=== PATIENT | female | born 1940 | race Caucasian/White ===

== ENCOUNTER 2019-01-17 09:53 | Inpatient (IN) ==
[2019-01-17] MEDS ORDERED: NS 1,000 ML IV ONE ×2 (10:44→13:27)
[2019-01-17 11:34] LABS: BASO# 0.02 X1000 (0.0-0.2); BASO% 0.2 % (0.0-0.8); EOS# 0.04 X1000 (0.0-0.7); EOS% 0.3 % (0.0-10.0); HEMATOCRIT 35.4 % (37.0-47.0); HEMOGLOBIN 11.6 g/dL (12.0-16.0); IMM GRAN# 0.03 X1000 (0.0-0.04); IMM GRAN% 0.3 % (0.0-0.5); LYMPH# 0.81 X1000 (1.2-3.4); LYMPH% 7.1 % (20.5-51.1); MCH 31.7 PG (27-31); MCHC 32.8 g/dL (33-37); MCV 96.7 FL (81-99); MONO# 1.05 X1000 (0.11-0.59); MONO% 9.2 % (1.7-9.3); MPV 10.5 FL (7.4-10.4); NEUT# 9.48 X1000 (1.4-6.5); NEUT% 82.9 % (42.2-75.2); PLT 270 X1000 (130-400); RBC 3.66 XMIL (4.2-5.4); WBC 11.43 X1000 (4.8-10.8)
[2019-01-17 11:52] LABS: ALBUMIN 3.6 g/dL (3.5-5.0); CALCIUM 9.9 mg/dL (8.8-10.2); CREATININE 1.2 mg/dL (0.5-0.9); POTASSIUM 4.6 mmol/L (3.5-5.1); TOTAL BILIRUBIN 0.46 mg/dL (0.20-1.00); TOTAL PROTEIN 7.1 g/dL (6.3-8.3)
[2019-01-17 12:20] LABS: URINE SOURCE CLEAN CATCH
[2019-01-17 12:24] LABS: BILIRUBIN URINE NEGATIVE (NEGATIVE); BLOOD URINE TRACE (NEGATIVE); COLOR YELLOW; GLUCOSE URINE NEGATIVE (NEGATIVE); KETONE URINE TRACE mg/dL (NEGATIVE); LEUKOCYTES URINE SMALL (NEGATIVE); NITRITE URINE NEGATIVE (NEGATIVE); PH URINE 5.5; PROTEIN URINE 50 mg/dL (NEGATIVE); SP GRAVITY URINE 1.009; TURBIDITY URINE HAZY (CLEAR); UROBILINOGEN URINE NORMAL (NORMAL)
[2019-01-17 12:28] LABS: UR EPITHELIAL CELLS <10 /HPF (<10); URINE BACTERIA NEGATIVE /HPF; URINE RBC <10 /HPF (<10)
[2019-01-17 12:44] LABS: URINE CASTS NONE SEEN
--- NOTE | 2019-01-17 12:50 | EKG Report ---
Test Performed on : 01/17/2019 10:07:18 AM Test Reason : ED. NO EKG ORDER FOR MUSE Blood Pressure : / mmHG Vent. Rate : 098 BPM Atrial Rate : 098 BPM P-R Int : 164 ms QRS Dur : 070 ms QT Int : 336 ms P-R-T Axes : 078 002 063 degrees QTc Int : 428 ms Normal sinus rhythm. Low voltage QRS Cannot rule out Anterior infarct , age undetermined Abnormal ECG No previous ECGs available Unconfirmed Result
--- NOTE | 2019-01-17 12:59 | Diag Imaging Result Doc PS360 ---
CT ABDOMEN/PELVIS W/O CONTRAST - 01/17/2019 INDICATION: abdominal pain COMPARISON: None FINDINGS: There is significant linear atelectasis or infiltrate in the lower lobes bilaterally. Heart size is normal. There is a small pericardial effusion. There is fatty metaplasia at the apex of the left ventricle of the heart indicating an old myocardial infarction here. There are a couple of stones in the left kidney measuring up to 4 mm. There is a left renal cyst that appears benign. There are low-density adrenal nodules bilaterally. These are compatible with benign adrenal adenomas. No hydronephrosis or hydroureter. There is significant fatty edema surrounding the sigmoid colon, particularly at a prominent diverticulum. No drainable fluid collection or free air. Urinary bladder is collapsed with an irregular contour, nonspecific. Uterus and rectum are normal. There are moderate degenerative changes of the spine. No acute or suspicious bony lesion. IMPRESSION: 1. Acute sigmoid colon diverticulitis. Recommend treatment and a follow-up CT or colonoscopy when better. 2. Nonobstructing left renal stones. This exam was performed using automated exposure control, adjustment of mA or kV according to patient size, and/or use of iterative reconstruction technique Electronically signed by Billy Stone 01/17/2019 12:57 PM
[2019-01-17] MEDS ORDERED: FLAGYL PO ONE (13:24)
[2019-01-17] MEDS ORDERED: DECADRON IV ONE (13:25)
[2019-01-17] MEDS ORDERED: LEVAQUIN 500 MG/D5W 500 MG/100 ML IVPB IV SCH (13:30)
[2019-01-17] MEDS ORDERED: CARDIZEM IV ONE (13:37)
--- NOTE | 2019-01-17 15:57 | HISTORY AND PHYSICAL ---
HISTORY OF PRESENT ILLNESS: Ms. Rose states that her tummy, lower abdomen, just started hurting and burning on Tuesday. She did not feel good, general malaise. She had fever, got up to 101 and some chills. Just had not had a bowel movement since Tuesday; today is Tuesday. She has not eaten much or drank much, but just felt like her tummy was inflamed. She denies any weight loss or weight gain. REVIEW OF SYSTEMS: HEENT: No change in visual or hearing acuity. Respiratory: With no increased work of breathing or dyspnea. Cardiovascular: No chest pain or tachy palpitation. Gastrointestinal/Genitourinary: Just the burning in her lower abdomen and constipation. No bowel movement since Tuesday, which is which is going on 5 to 6 days now. Musculoskeletal/Neurologic: No focal complaints Endocrinologic/Hematologic: No significant history or complaints. Neck: Without any adenopathy. No recent trauma or falls. PHYSICAL EXAMINATION: VITAL SIGNS: Temperature 98.6 degrees, pulse 87, respirations 21, blood pressure 111/62. HEENT: Pupils are equal round. Conjunctiva pink. Sclerae clear. CVP less than 6 cm. LUNGS: Clear in all lung [place]. NECK: CVP less than 6 cm. No cervical or supraclavicular adenopathy. CARDIOVASCULAR: Regular rhythm and rate without murmur or S3. ABDOMEN: Soft. She has some mild tenderness in the left lower quadrant. Positive bowel sounds. No organomegaly appreciated. No hepatosplenomegaly or splenomegaly. EXTREMITIES: No pedal edema. No sign of rashes. LABORATORY DATA: White count 11,430, hematocrit is 35, platelet count 270,000. Sodium 134, potassium 4.6, chloride 97, BUN of 21, creatinine 1.2. AST is 12, ALT 11, alkaline phosphatase 73, albumin 3.6. Urinalysis unremarkable. CT of the abdomen and pelvis, acute sigmoid diverticulitis, and nonobstructing left renal stones were appreciated. ASSESSMENT AND PLAN: Diverticulitis with some mild leukocytosis and fever and tenderness. We are going to treat her with some IV antibiotics, Levaquin and Flagyl, and hydrate her with some fluids. She does not have really any other significant past medical history or medical problems, and this is her first episode of diverticulitis. I believe she had a colonoscopy in 2007, and she is scheduled to get another one this year, and she will get one with followup after this admission. cc: Negro Arzola MD
[2019-01-17] MEDS ORDERED: TYLENOL PO PRN (16:48)
[2019-01-17] MEDS ORDERED: ZOFRAN IV PRN (16:48)
[2019-01-17] MEDS: NS 1,000 ML IV SCH (17:28)
[2019-01-17] MEDS: FLAGYL 500 MG/NS 500 MG/100 ML IVPB IV SCH ×2 (18:29→22:31)
[2019-01-17] MEDS: XANAX PO SCH (22:31)
[2019-01-18] MEDS: FLAGYL 500 MG/NS 500 MG/100 ML IVPB IV SCH ×4 (04:28→23:41)
[2019-01-18] MEDS: NS 1,000 ML IV SCH ×3 (06:01→23:41)
[2019-01-18 07:32] LABS: BASO# 0.01 X1000 (0.0-0.2); BASO% 0.1 % (0.0-0.8); HEMATOCRIT 32.4 % (37.0-47.0); HEMOGLOBIN 10.4 g/dL (12.0-16.0); IMM GRAN# 0.04 X1000 (0.0-0.04); IMM GRAN% 0.4 % (0.0-0.5); LYMPH# 0.72 X1000 (1.2-3.4); LYMPH% 6.4 % (20.5-51.1); MCH 31.2 PG (27-31); MCHC 32.1 g/dL (33-37); MCV 97.3 FL (81-99); MONO# 0.62 X1000 (0.11-0.59); MONO% 5.5 % (1.7-9.3); MPV 10.6 FL (7.4-10.4); NEUT# 9.79 X1000 (1.4-6.5); NEUT% 87.6 % (42.2-75.2); PLT 248 X1000 (130-400); RBC 3.33 XMIL (4.2-5.4); RDW 11.8 % (11.5-14.5); WBC 11.18 X1000 (4.8-10.8)
[2019-01-18 08:01] LABS: AGAP 11; ALB/GLOB RATIO 1.2; ALBUMIN 3.2 g/dL (3.5-5.0); ALKALINE PHOSPHATASE 69 U/L (32-104); BUN 15 mg/dL (8-22); CALCIUM 9.1 mg/dL (8.8-10.2); CHLORIDE 110 mmol/L (98-107); COSMO 287; CREATININE 0.7 mg/dL (0.5-0.9); ESTIMATED GFR > 60; GLUCOSE 124 mg/dL (70-104); GOT 10 U/L (10-30); GPT 9 U/L (10-36); SODIUM 143 mmol/L (136-145); TCO2 22 mmol/L (25-35); TOTAL BILIRUBIN 0.18 mg/dL (0.20-1.00); TOTAL PROTEIN 5.8 g/dL (6.3-8.3)
[2019-01-18] MEDS: LEVAQUIN 250 MG/D5W 250 MG/50 ML IVPB IV SCH (16:18)
--- NOTE | 2019-01-18 17:42 | PROGRESS NOTE ---
DATE: 01/18/2019 SUBJECTIVE: Ms. Rose is feeling a little better. She just got a bath. Her tummy feels better, less nausea. She is tolerating the full liquids well. OBJECTIVE: Vital signs: Temp 97.7 degrees, pulse 90, respirations 20, blood pressure 134/54. HEENT: Pupils are equal and round. Lungs: Clear in all lung [place]. Cardiovascular: Regular rhythm and rate. Abdomen: She has some tenderness in the lower abdomen, but it is much less than yesterday. ASSESSMENT AND PLAN: 1. Diverticulitis. Seems to be improved. Continue Levaquin and Flagyl IV. We are on full liquids. Hopefully another 24 hours of IV antibiotics and maybe she can go home with p.o. antibiotics. Her last colonoscopy was in 2007. She is scheduled to get another colonoscopy this year and will plan that as an outpatient. 2. Review of her orders. I do not see any change. cc: Negro Arzola MD
[2019-01-18] MEDS: XANAX PO SCH (20:36)
[2019-01-19] MEDS: NS 1,000 ML IV SCH ×2 (05:40→15:10)
[2019-01-19] MEDS: FLAGYL 500 MG/NS 500 MG/100 ML IVPB IV SCH ×4 (06:32→22:20)
--- NOTE | 2019-01-19 11:07 | PROVIDER DOCUMENTATION ---
This chart was entered by Nell Butts Scribe, acting as scribe for Stacia Kuhn MD. HPI-Abdominal Pain/GI Problem - General Chief Complaint: Abdominal Pain Stated Complaint: BODY PAIN/FEVER/NO APPETITE Time Seen by Provider: 01/17/19 10:31 Source: patient, family Allergies/Adverse Reactions: Patient Allergies Allergy/AdvReac Type Severity Reaction Status Date / Time Penicillins AdvReac VOMITING Verified 01/17/19 10:51 - History of Present Illness-ABD Nature of Presenting Problems: 78 yof presents with cc of waves of intermittent cramping abdominal pain since tuesday. Reports last BM was on Tuesday morning. reports took enema with no relief. Denies urinary symptoms. Pt also reports that her abd pain has eased up but she still is having generalized body pain. Reports fell out of bed yesterday and has left knee pain. Denies rectal pain, GI bleed. Abdominal Pain Onset Location: reports: generalized abdomen Quality of Pain: reports: aching Severity in ED: reports: mild Onset/Duration: reports: 5 days ago Timing: reports: still present, intermittent Dark Stools Present?: reports: none noticed Rectal Bleeding: reports: none Rectal Pain: reports: none Review of Systems - Adult - REVIEW OF SYSTEMS - ADULT Constitutional: denies: chills, fever, fatique Eyes: reports: no symptoms reported Ears, Nose, Mouth & Throat: denies: ear pain, sinus problem, throat pain Cardiovascular: reports: no symptoms reported Respiratory: reports: no symptoms reported Gastrointestinal: reports: abdominal pain, constipation, nausea. denies: hematemesis, diarrhea, difficulty swallowing, frequent heartburn, rectal bleeding, vomiting Genitourinary: denies: dysuria, discharge, frequency, frequent UTI's, hematuria, hesitency, incontinence Musculoskeletal: denies: bone pain, back pain, joint pain, neck pain Integumentary: reports: no symptoms reported Neurological: reports: no symptoms reported Psychiatric: reports: no symptoms reported Endocrine: reports: no symptoms reported Hematologic/Lymphatic: reports: no symptoms reported Allergic/Immunologic: reports: no symptoms reported All Other Systems: Reviewed and Negative Past History - Adult - PAST MEDICAL HISTORY-ADULT Review of Records: reports: Nursing Assessment Review, Medications Reviewed Major Childhood Illnesses: reports: denies history Cardiovascular: reports: denies history Respiratory: reports: denies history Gastrointestinal: reports: denies history Obstetrical/Gynecological: reports: denies history Genitourinary: reports: denies history Musculoskeletal: reports: denies history Neurological: reports: denies history Endocrine/Immune: reports: denies history Other Conditions: reports: denies history - PRIOR SURGERIES/PROCEDURES Surgical/Procedure History: reports: hysterectomy - IMMUNIZATION STATUS Childhood Immunizations: See Nurse Assessment Flu Vaccine: See Nurse Assessment - FAMILY HISTORY Family History: reviewed, not pertinent - SOCIAL HISTORY Smoking: denies Substance Use: none/never Physical Exam-General - PHYSICAL EXAM-ADULT Initial Vital Signs Reviewed: Yes - CONSTITUTIONAL General Appearance: appears well, alert, no apparent distress - EYES Eyes: PERRL/EOMI - HEAD, EARS, NOSE, MOUTH & THROAT HENMT: moist mucous membranes - NECK Neck: non-tender, full range of motion, supple, normal inspection - RESPIRATORY Respiratory: chest non-tender, lungs clear, normal breath sounds, no pleuratic chest pain, no respiratory distress, no accessory muscle use - CARDIOVASCULAR Cardiovascular: normal peripheral pulses, regular rate, rhythm, no edema, no gallop, no JVD, no murmur - GASTROINTESTINAL (ABDOMEN) Abdominal Exam: no organomegaly, no pulsatile mass, tenderness (generalized). negative: abdominal bruit, abnormal bowel sounds, distended, guarding, rigid, rebound - GENITOURINARY Female Genitalia/Pelvic Exam: deferred - LYMPHATIC Lymphatic: no adenopathy - MUSCULOSKELETAL Back Exam: normal inspection, no CVA tenderness, no vertebral tenderness Extremity: normal range of motion, non-tender, other (left knee full range of motion no ecchymosis) - SKIN Integumentary: normal color, normal turgor, warm/dry, abrasion(s) (left knee) - NEUROLOGIC Neurologic: grossly normal - PSYCHIATRIC Psych/Mental Status: normal mood/affect, normal thought content, normal thought process, oriented x 3 Progress - PLAN OF CARE/RESULTS Progress/Plan/Lab Results: Vital Signs - 8 hr 01/17/19 09:55 Temperature 98.8 F Pulse Rate 101 H Respiratory Rate 20 Blood Pressure 92/54 O2 Sat by Pulse Oximetry 95 Orders Category Date Time Status CT ABDOMEN/PELVIS W/O CONTRAST [CT] Stat Exams 01/17/19 10:38 Ordered Result Diagrams: 01/18/19 06:50 01/18/19 06:50 - REASSESSMENT Reassessment #1 Time Reassessed: 12:02 (dr kuhn at bedside) Status: unchanged Reassessment #2 Time Reassessed: 13:07 (dr kuhn at bedside) Status: improving - EKG 1 Time of EKG reading by physician:: 10:07 EKG Read and Signed by:: Stacia Kuhn EKG Interpretation (*Must complete 3 of following elements*): Abnormal (cannot rule out anterior infarct age undetermined) Rate: 98 Rhythm: nsr Alexander: normal QRS: other (low voltage QRS) ST Wave: normal - CT/MRI 1 CT Study: Abdomen, Pelvis Impression: See EMR Report (CT ABDOMEN/PELVIS W/O CONTRAST - 01/17/2019 INDICATION: abdominal pain COMPARISON: None FINDINGS: There is significant linear atelectasis or infiltrate in the lower lobes bilaterally. Heart size is normal. There is a small pericardial effusion. There is fatty metaplasia at the apex of the left ventricle of the heart indicating an old myocardial infarction here. There are a couple of stones in the left kidney measuring up to 4 mm. There is a left renal cyst that appears benign. There are low-density adrenal nodules bilaterally. These are compatible with benign adrenal adenomas. No hydronephrosis or hydroureter. There is significant fatty edema surrounding the sigmoid colon, particularly at a prominent diverticulum. No drainable fluid collection or free air. Urinary bladder is collapsed with an irregular contour, nonspecific. Uterus and rectum are normal. There are moderate degenerative changes of the spine. No acute or suspicious bony lesion. IMPRESSION: 1. Acute sigmoid colon diverticulitis. Recommend treatment and a follow-up CT or colonoscopy when better. 2. Nonobstructing left renal stones. This exam was performed using automated exposure control, adjustment of mA or kV according to patient size, and/or use of iterative reconstruction technique Electronically signed by Billy Stone 01/17/2019 12:57 PM 01/17/19 1257 Interpreting Physician: Billy Stone MD Dictated Date/Time: 01/17/19 1252 cc: Stacia Kuhn MD; Negro Riggs MD) - CONSULTS/PCP/HOSPITALIST Notification #1 *Consult/PCP/Hospitalist*: dr riggs pcp Consult Disposition: Admit Departure - Departure Date of Disposition Decision: 01/17/19 Time of Disposition Decision: 13:06 DIAGNOSIS: Diverticulitis Disposition: ADMITTED INPATIENT 09 Certified Medical Emergency: Emergent Condition: Stable - Critical Care Note This patient required my direct & personal management of CC.: Yes Total Time (mins): 32 Critical Care Statement: This patient required my direct personal management to treat or rule out processes, the absence of which, could potentiallly result in sudden, clinically significant life or limb threatening deterioration. Attestation - Physician/ NALDO Attestation Patient care was provided by Advanced Practice Provider:: No The physician spent face to face time with patient:: Yes Advanced Practice Provider documentation review:: Supervising physician onsite and consulted in the evaluation and care of this patient. The physician did have a face to face encounter with the patient. This chart was documented by the indicated scribe, (Nell Butts Scribe) and accurately reflects the services I performed and decisions made by me, Stacia Kuhn MD, as attested by the provider's signature.
[2019-01-19] MEDS ORDERED: MILK OF MAGNESIA PO ONE (14:52)
[2019-01-19] MEDS: LACTULOSE PO SCH ×2 (15:09→22:19)
[2019-01-19] MEDS: LEVAQUIN 250 MG/D5W 250 MG/50 ML IVPB IV SCH (15:09)
--- NOTE | 2019-01-19 15:13 | PROGRESS NOTE ---
DATE: 01/19/2019 SUBJECTIVE: Ms. Rose is a little better, but her back is still hurting, lower abdomen is still uncomfortable. She notes she had a small bowel movement, and she is still on full liquids. OBJECTIVE: Vital Signs: Temperature 98.1 degrees, pulse 90, respirations 17, blood pressure 120/58. Eyes: Pupils are equal and round. Lungs: Clear in all lung [place]. Cardiovascular exam: Regular rhythm and rate without murmur or S3. Abdomen: Soft. She has minimal tenderness in the lower quadrants. ASSESSMENT AND PLAN: Diverticulitis. Continue current antibiotics. I think she needs another 24 to 48 hours of antibiotic, and continue Flagyl and Levaquin. We will try some milk of magnesia and continue to increase activity. cc: Negro Arzola MD
[2019-01-19] MEDS: XANAX PO SCH (22:20)
[2019-01-20] MEDS: FLAGYL 500 MG/NS 500 MG/100 ML IVPB IV SCH ×2 (05:34→11:15)
[2019-01-20] MEDS: NS 1,000 ML IV SCH (05:34)
[2019-01-20] MEDS: LACTULOSE PO SCH (09:04)
[2019-01-20 12:50] VITALS: BP 135/50
--- NOTE | 2019-01-20 13:28 | DISCHARGE SUMMARY ---
ADMISSION DATE: 01/17/2019 DISCHARGE DATE: 01/20/2019 HISTORY AND HOSPITAL COURSE: She is a patient of mine, Dr. Negro Arzola, states that when admission on 01/17/2019 complaining of lower abdominal pain and lower back pain that has lasted for 3 or 4 days and seemed to be getting more intense. [place] like she had subjective fever and then at one point she measured a temperature of 101 degrees with some chills. Presented to the hospital. CT scan showed diverticulitis. She was put on IV Flagyl and Levaquin. She did show slow improvement. Did complain of some constipation. Wanted to stay on suggested soft GI diet, but felt like we had been making improvement. [place] [id number], hematocrit 32, hemoglobin 10, platelet count 248,000. Chemistries unremarkable. Creatinine was 1.2 when she came in a little intravascularly volume depleted, so had this improved to 0.7. [place] she could go home on 01/20/2019. DISCHARGE MEDICATION: We will keep her on lactulose 30 mL b.i.d. I will switch over to Cipro 500 mg b.i.d., she states that he is on her stomach, and then will put her on Flagyl 500 mg twice a day will continue that for another 10 days. She does take her Xanax 1 mg at night and I think she is on trazodone 150 mg every night. We will let her continue that as well, and I believe I will put her on some MiraLAX and that 17 g daily. FOLLOWUP: Follow back in my office in a couple weeks. cc: Negro Arzola MD
== END 2019-01-20 15:14 | disposition home or self-care (01) | DRG 392 ==
LOC: ED 09:53 → 3N 16:27
PROVIDERS: ADMIT Emergency Medicine; ATTEND Emergency Medicine
CPT/HCPCS: 74176; 80053; 81001; 82150; 83690; 83735; 84443; 85025; 87088; 93005; 96361; 96365; 96375; 99285; A9270; J1956; J7030; S0030